=== PATIENT | female | born 1995 | race Caucasian/White ===

== ENCOUNTER 2017-07-03 05:43 | Emergency (ER) | payer OTHER ==
[2017-07-03 05:55] VITALS: BP 119/70; PULSE 76; RESP 20; TEMP 98.2; O2SAT 96
--- NOTE | 2017-07-03 06:25 | EDPHY ---
H & P Stated Complaint: frequent and frequent urination Time Seen by Provider: 07/03/17 05:54 HPI/ROS: HPI The patient presents with 1 day of dysuria, urgency, hesitancy which has been intermittent. This feels like her prior urinary tract infections. She has had several before. She has not any fevers, nausea, vomiting, flank pain. She has not had any vaginal discharge. She has taken antibiotics before but knows that Macrobid has been ineffective in the past to treat her symptoms.. REVIEW OF SYSTEMS Constitutional: No fever, no chills. Eyes: No discharge. ENT: No sore throat. Cardiovascular: No chest pain, no palpitations. Respiratory: No cough, no shortness of breath. Gastrointestinal: No abdominal pain, no vomiting. Genitourinary: No hematuria. Musculoskeletal: No back pain. Skin: No rashes. Neurological: No headache. PMHx: History of urinary tract infections PHYSICAL General Appearance: Alert, no distress Eyes: Pupils equal and round no pallor or injection ENT, Mouth: Mucous membranes moist Respiratory: There are no retractions, lungs are clear to auscultation Cardiovascular: Regular rate and rhythm Gastrointestinal: Abdomen is soft and non-tender, no masses, bowel sounds normal Neurological: A&O, moves all extremities Skin: Warm and dry, no rashes Musculoskeletal: Neck is supple non tender Extremities: symmetrical, full range of motion Psychiatric: Patient is oriented X 3, there is no agitation Source: Patient Exam Limitations: No limitations - Personal History LMP (Females 10-55): 15-21 Days Ago Current Tetanus Diphtheria and Acellular Pertussis (TDAP): Unsure - Medical/Surgical History Hx Asthma: No Hx Chronic Respiratory Disease: No Hx Diabetes: No Hx Cardiac Disease: No Hx Renal Disease: No Hx Cirrhosis: No Hx Alcoholism: No Hx HIV/AIDS: No Hx Splenectomy or Spleen Trauma: No - Social History Smoking Status: Light smoker Constitutional: Initial Vital Signs Temperature (C) 36.8 C 07/03/17 05:46 Heart Rate 76 07/03/17 05:46 Respiratory Rate 20 07/03/17 05:46 Blood Pressure 119/70 07/03/17 05:46 O2 Sat (%) 96 07/03/17 05:46 O2 Delivery Mode Room Air Allergies/Adverse Reactions: No Known Allergies Allergy (Unverified 07/03/17 05:46) Home Medications: Medication Instructions Recorded Cephalexin [Keflex (*)] 500 mg PO Q6H #28 cap 07/03/17 Medical Decision Making Differential Diagnosis: This is a 22-year-old female who presents from home with 1 day of irritative voiding symptoms, prior history of UTI. On exam, well appearing, afebrile, no flank tenderness. UA consistent with urinary tract infection. Will treat here with Keflex with urine culture sent and prescription. She is in agreement with this plan. I doubt pyelonephritis or ureterolithiasis. - Data Points Laboratory Results: 07/03/17 05:55 Urine Color YELLOW Urine Appearance HAZY Urine pH 5.0 (5.0-7.5) Ur Specific [place] 1.023 (1.002-1.030) Urine Protein 1+ H (NEGATIVE) Urine Ketones NEGATIVE (NEGATIVE) Urine Blood NEGATIVE (NEGATIVE) Urine Nitrate NEGATIVE (NEGATIVE) Urine Bilirubin NEGATIVE (NEGATIVE) Urine Urobilinogen NEGATIVE EU EU (0.2-1.0) Ur Leukocyte Esterase 1+ H (NEGATIVE) Urine RBC 25-50 /hpf H /hpf (0-3) Urine WBC 50-182 /hpf H /hpf (0-3) Ur Epithelial Cells 1+ /lpf /lpf (NONE-1+) Urine Bacteria 4+ /hpf H /hpf (NONE SEEN) Hyaline Casts 1-5 /lpf /lpf (0-1) Urine Mucus 2+ /lpf H /lpf (NONE-1+) Urine Glucose NEGATIVE (NEGATIVE) Departure - Departure Disposition: Home, Routine, Self-Care Clinical Impression: UTI (urinary tract infection) Qualifiers: Urinary tract infection type: acute cystitis Hematuria presence: without hematuria Qualified Code(s): N30.00 - Acute cystitis without hematuria Condition: Good Instructions: Cephalexin (By mouth), Urinary Tract Infection in Women (ED) Referrals: NONE *PRIMARY CARE P,. [Primary Care Provider] - As per Instructions Prescriptions: Cephalexin [Keflex (*)] 500 mg PO Q6H #28 cap
[2017-07-03] MEDS ORDERED: CEPHALEXIN 500 MG CAP PO ONE (06:27)
[2017-07-03] MEDS ORDERED: CEPHALEXIN 500MG PREPACK#4 BTL TAKEHOME ONE (06:27)
== END 2017-07-03 06:35 | disposition home or self-care (01) ==
LOC: MERGE 05:43 → EDBD 05:43
DX: N30.00 Acute cystitis without hematuria (principal); F17.200 Nicotine dependence, unspecified, uncomplicated; B96.89 Other specified bacterial agents as the cause of diseases classified elsewhere

== ENCOUNTER 2018-07-12 20:02 | Emergency (ER) | payer OTHER ==
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
[2018-07-12] MEDS ORDERED: ACETAMINOPHEN 500 MG TAB PO ONE (20:15)
[2018-07-12] MEDS ORDERED: ACETAMINOPHEN 500 MG TAB ONE (20:16)
[2018-07-12 21:47] VITALS: BP 125/87
== END 2018-07-12 21:53 | disposition home or self-care (01) ==
DX: S00.83XA Contusion of other part of head, initial encounter (principal); Y04.8XXA Assault by other bodily force, initial encounter; Y92.410 Unspecified street and highway as the place of occurrence of the external cause; Y93.9 Activity, unspecified; Y99.9 Unspecified external cause status